=== PATIENT | male | born 1990 | race Caucasian/White ===

== ENCOUNTER 2019-12-22 15:25 | Emergency (ER) | payer BC ==
[~2019-12-22] VITALS: Ht 182.9 cm; Wt 134.1 kg
[2019-12-22 15:34] VITALS: BP 143/81; TEMP 98.5
[2019-12-22] MEDS ORDERED: ZOLOFT 50MG50 MG PO (17:22)
[2019-12-22] MEDS ORDERED: NORCO 325 MG-51 TAB PO (17:52)
[2019-12-22 18:06] VITALS: PULSE 66
== END 2019-12-22 18:06 | disposition home or self-care (01) ==
LOC: COL.ER 15:25
DX: M75.102 Unspecified rotator cuff tear or rupture of left shoulder, not specified as traumatic (principal); X58.XXXA Exposure to other specified factors, initial encounter

== ENCOUNTER 2020-01-20 12:35 | Day surgery (SDC) | payer BC ==
[~2020-01-20] VITALS: Ht 182.9 cm; Wt 129.5 kg
[~2020-01-20 12:35] MED LIST: NORCO 325 MG-51 TAB PO; ZOLOFT 50MG50 MG PO
[2020-01-20 13:08] LABS: BASO % 0.3 % (0.0-2.0); EOS # 0.2 (0.0-0.7); EOS % 1.4 % (0-4.0); GRAN # 9.7 (1.4-6.5); GRAN % 74.9 % (42.2-75.2); HEMATOCRIT 42.9 % (42.0-52.0); HEMOGLOBIN 14.5 g/dl (13.5-18.0); LYMPH # 2.1 (1.2-3.4); LYMPH % 16.6 % (20.0-51.0); MEAN CELL VOLUME 87 fl (80.0-100.0); MEAN CORPUSCULAR HEMOGLOBIN 30 pg (27.0-31.0); MEAN CORPUSCULAR HGB CONC 34 g/dl (33.0-37.0); MEAN PLATELET VOLUME 10.7 fl (7.4-10.4); MONO # 0.8 (0.1-0.6); MONO % 6.5 % (1.7-9.3); PLATELET COUNT 174 K/mm3 (130-400); RED BLOOD COUNT 4.91 M/mm3 (4.20-5.60); REDCELL DISTRIBUTION WIDTH-CV 12.4 % (11.5-14.5)
[2020-01-20 13:22] LABS: ALBUMIN 4.3 gm/dL (3.5-5.0); BILIRUBIN,TOTAL 0.6 mg/dL (0.0-1.0); CALCIUM 9.4 mg/dL (8.4-10.2); CREATININE, serum 0.69 (0.66-1.25); POTASSIUM 3.9 mmol/L (3.4-5.0); TOTAL PROTEIN 7.3 gm/dL (6.4-8.2)
[2020-01-20 14:04] LABS: COLLECTION METHOD CLEAN CATCH
[2020-01-20 14:11] LABS: MUCOUS Present /lpf; PH 5 (5-8); SQUAMOUS EPITHELIAL 0-2 /hpf; URINE APPEARANCE Hazy; URINE BACTERIA None Seen /hpf; URINE BILIRUBIN Negative (NEGATIVE); URINE BLOOD Negative (NEGATIVE); URINE COLOR Yellow; URINE GLUCOSE Negative (NEGATIVE); URINE KETONE Negative (NEGATIVE); URINE LEUKOCYTE ESTERASE Negative (NEGATIVE); URINE NITRATE Negative (NEGATIVE); URINE PROTEIN(semi-quant) 1+ (NEGATIVE); URINE UROBILINOGEN Negative (NEGATIVE)
[2020-01-20] MEDS ORDERED: NORCO 325 MG-51 TAB PO (17:40)
[2020-01-20] MEDS ORDERED: MOTRIN 600600 MG/TAB PO (17:40)
[2020-01-20] MEDS ORDERED: COLACE 100100 MG/CAP PO (17:40)
[2020-01-20 17:56] VITALS: BP 118/76; PULSE 63; TEMP 97.9
--- NOTE | 2020-01-20 17:59 | NUR ---
Patient to room via bed from PACU. Alert and groggy. Lap sites x3 to abd with edges well approximated, no redness/swelling/discharge noted. Oriented to room and criteria before being discharged. Patient denies needs at this time.
[2020-01-20 18:11] VITALS: BP 131/75; PULSE 65
[2020-01-20 18:26] VITALS: BP 124/79; PULSE 61
[2020-01-20 18:33] VITALS: BP 118/76; PULSE 62; TEMP 97.1
--- NOTE | 2020-01-20 20:04 | NUR ---
Patient given 4 pack of home [place] per physician order. Patient ambulated to ER entrance with surgical staff. All questions answered and patient verbalized understanding. Education completed with patient on discharge instructions. INT to left and right hand discontinued.
== END 2020-01-20 20:06 | disposition home or self-care (01) ==
LOC: COL.ER 12:35 → SURG 14:47 → SDCO 14:47
PROVIDERS: Physician Assistant
DX: K35.80 Unspecified acute appendicitis (principal); F17.210 Nicotine dependence, cigarettes, uncomplicated; F32.9 Major depressive disorder, single episode, unspecified; Z79.899 Other long term (current) drug therapy; Z09 Encounter for follow-up examination after completed treatment for conditions other than malignant neoplasm; Z87.442 Personal history of urinary calculi
CPT/HCPCS: OP; J0330; J1100; J2250; J2405; J2704; J3010; J7120; Q9967

== ENCOUNTER 2023-12-25 23:05 | Emergency (ER) | payer SELFPAY ==
[~2023-12-25] VITALS: Ht 182.9 cm; Wt 159.1 kg
[~2023-12-25 23:05] MED LIST changes: +COLACE 100100 MG/CAP PO; +DOXYCYCLINE 10100 MG PO; +MOTRIN 600600 MG/TAB PO
[2023-12-25] MEDS ORDERED: NS 1,000 ML IV ONE (23:30)
[2023-12-25] MEDS ORDERED: Ketorolac 30 MG/ML VIAL IV ONE (23:30)
[2023-12-25 23:55] LABS: COLLECTION METHOD CLEAN CATCH
[2023-12-25 23:58] LABS: BASO # 0.1 K/mm3 (0.0-0.2); BASO % 0.5 % (0.0-2.0); EOS # 0.3 K/mm3 (0.0-0.7); EOS % 2.5 % (0.0-4.0); GRAN # 5.3 K/mm3 (1.4-6.5); GRAN % 50.2 % (42.2-75.2); HEMATOCRIT 44.7 % (42.0-52.0); HEMOGLOBIN 14.6 g/dl (13.5-18.0); LYMPH # 4.1 K/mm3 (1.2-3.4); LYMPH % 38.6 % (20.0-51.0); MEAN CELL VOLUME 87 fl (80.0-100.0); MEAN CORPUSCULAR HEMOGLOBIN 29 pg (27-31); MEAN CORPUSCULAR HGB CONC 33 g/dl (33.0-37.0); MEAN PLATELET VOLUME 10.8 fl (7.4-10.4); MONO # 0.8 K/mm3 (0.1-0.6); MONO % 7.8 % (1.7-9.3); PLATELET COUNT 205 K/mm3 (130-400); RED BLOOD COUNT 5.13 M/mm3 (4.20-5.60); REDCELL DISTRIBUTION WIDTH-CV 11.9 % (11.5-14.5)
[2023-12-26 00:06] LABS: URINE APPEARANCE CLOUDY (CLEAR/HAZY); URINE BLOOD NEGATIVE (NEGATIVE); URINE COLOR YELLOW (YELLOW); URINE GLUCOSE NEGATIVE (NEGATIVE); URINE KETONE TRACE (NEGATIVE); URINE NITRATE NEGATIVE (NEGATIVE); URINE PROTEIN(semi-quant) TRACE (NEGATIVE)
[2023-12-26 00:16] LABS: ALBUMIN 4.1 g/dL (3.5-5.0); BILIRUBIN,TOTAL 0.2 mg/dL (0.2-1.2); C-REACTIVE PROTEIN 0.41 mg/dL (0.00-0.50); CALCIUM 9.5 mg/dL (8.4-10.2); CREATININE, serum 1.59 mg/dL (0.72-1.25); POTASSIUM 3.9 mEq/L (3.5-4.5); TOTAL PROTEIN 6.9 g/dl (6.2-8.1)
[2023-12-26] MEDS ORDERED: levoFLOXacin 500 MG TAB PO ONE (00:30)
[2023-12-26] MEDS ORDERED: Home HYDROcodone/Acetaminophen 5/325 MG #4 TABS/PACK PO ONE (00:30)
[2023-12-26] MEDS ORDERED: LEVAQUIN 5500 MG/TA1 PO (00:37)
[2023-12-26 01:03] VITALS: BP 142/78; PULSE 73; TEMP 98
== END 2023-12-26 01:03 | disposition home or self-care (01) ==
LOC: COL.ER 23:05
PROVIDERS: Emergency Medicine
DX: N50.812 Left testicular pain (principal); N50.811 Right testicular pain; N39.0 Urinary tract infection, site not specified; E11.9 Type 2 diabetes mellitus without complications; F17.200 Nicotine dependence, unspecified, uncomplicated; Z79.84 Long term (current) use of oral hypoglycemic drugs
CPT/HCPCS: J1885; J7030

== ENCOUNTER → 2023-12-26 | Outpatient (CLI) | payer SELFPAY ==
[~2023-12-26] MED LIST changes: +LEVAQUIN 5500 MG/TA1 PO
== END ==
LOC: COL.RAD 06:36
DX: N50.819 Testicular pain, unspecified (principal)

== ENCOUNTER 2023-12-30 11:01 | Emergency (ER) | payer SELFPAY ==
[~2023-12-30] VITALS: Ht 182.9 cm; Wt 159.1 kg
[2023-12-30 11:12] VITALS: TEMP 98
[2023-12-30] MEDS ORDERED: PRINIVIL10 MG PO (11:18)
[2023-12-30] MEDS ORDERED: JARDIANCE25 PO (11:19)
[2023-12-30] MEDS ORDERED: Ondansetron 4 MG/2 ML VIAL IV ONE (12:15)
[2023-12-30] MEDS ORDERED: LR 1,000 ML IV ONE (12:15)
[2023-12-30] MEDS ORDERED: HYDROmorphone 0.5 MG/0.5 ML SYRINGE IV ONE (12:15)
[2023-12-30 12:39] LABS: COLLECTION METHOD CLEAN CATCH
[2023-12-30 12:45] LABS: BASO % 0.4 % (0.0-2.0); EOS # 0.2 K/mm3 (0.0-0.7); EOS % 2.4 % (0.0-4.0); GRAN # 4.2 K/mm3 (1.4-6.5); GRAN % 52.7 % (42.2-75.2); HEMATOCRIT 43.6 % (42.0-52.0); HEMOGLOBIN 14.4 g/dl (13.5-18.0); LYMPH % 37.5 % (20.0-51.0); MEAN CELL VOLUME 88 fl (80.0-100.0); MEAN CORPUSCULAR HEMOGLOBIN 29 pg (27-31); MEAN CORPUSCULAR HGB CONC 33 g/dl (33.0-37.0); MEAN PLATELET VOLUME 10.8 fl (7.4-10.4); MONO # 0.5 K/mm3 (0.1-0.6); MONO % 6.7 % (1.7-9.3); PH 7.5 (5.0-8.5); PLATELET COUNT 190 K/mm3 (130-400); RED BLOOD COUNT 4.97 M/mm3 (4.20-5.60); REDCELL DISTRIBUTION WIDTH-CV 12.1 % (11.5-14.5); URINE APPEARANCE CLEAR (CLEAR/HAZY); URINE BLOOD NEGATIVE (NEGATIVE); URINE COLOR YELLOW (YELLOW); URINE GLUCOSE 3+ (NEGATIVE); URINE KETONE NEGATIVE (NEGATIVE); URINE NITRATE NEGATIVE (NEGATIVE); URINE PROTEIN(semi-quant) NEGATIVE (NEGATIVE)
[2023-12-30 13:07] LABS: ALBUMIN 3.9 g/dL (3.5-5.0); BILIRUBIN,TOTAL 0.3 mg/dL (0.2-1.2); C-REACTIVE PROTEIN 0.45 mg/dL (0.00-0.50); CALCIUM 8.9 mg/dL (8.4-10.2); CREATININE, serum 0.76 mg/dL (0.72-1.25); POTASSIUM 3.9 mEq/L (3.5-4.5); TOTAL PROTEIN 6.4 g/dl (6.2-8.1)
[2023-12-30] MEDS ORDERED: NS 100 ML IV SCH (13:29)
[2023-12-30] MEDS ORDERED: Iohexol 300 - 100 ML VIAL IV ONE (13:29)
[2023-12-30] MEDS ORDERED: PERCOCET 325 MG1 TA3 PO (14:47)
[2023-12-30 15:23] VITALS: BP 142/87; PULSE 60
== END 2023-12-30 16:48 | disposition home or self-care (01) ==
LOC: COL.ER 11:01
PROVIDERS: Family Medicine
DX: N45.1 Epididymitis (principal)
CPT/HCPCS: J1170; J2405; J7120; Q9967